=== PATIENT | male | born 1985 ===

== ENCOUNTER 2017-06-04 20:43 | Emergency (ER) | payer OTHER ==
[2017-06-04 20:55] VITALS: RESP 20; TEMP 98.8
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
[2017-06-05 02:03] VITALS: BP 128/72; PULSE 86
[2017-06-05 02:04] VITALS: O2SAT 98
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
== END 2017-06-04 23:45 | disposition home or self-care (01) ==
LOC: C.ER 20:43
DX: S39.012A Strain of muscle, fascia and tendon of lower back, initial encounter (principal); S80.02XA Contusion of left knee, initial encounter; V44.5XXA Car driver injured in collision with heavy transport vehicle or bus in traffic accident, initial encounter